=== PATIENT | male | born 1960 | race Caucasian/White ===

== ENCOUNTER → 2023-08-02 | Outpatient (CLI) | payer OTHER ==
--- NOTE | 2023-08-02 09:28 | MR ---
EXAMINATION TYPE: MR Rectal wo/w con DATE OF EXAM: 08/02/2023 8:42 AM CLINICAL INDICATION:Male, 62 years old with history of C20; PHH, Rectal cancer, evaluating for mets i n pelvis. COMPARISON: s TECHNIQUE: Triplane multisequence imaging was performed of the pelvis. IV Contrast: 14 cc Gadavist FINDINGS: Reproductive: Prostate: Unremarkable. Seminal vesicle's: Unremarkable. Testes: Unremarkable. Bladder: Unremarkable. Bowel: Primary rectal malignancy visualized with sequential wall thickening involving the anus and ex tending superiorly. There is circumferential wall thickening noted series 411 image 12 up to 11 mm. Peritoneum: A small amount of free fluid in the pelvis. Extra-mesorectal lymph nodes: (mesorectal, superior rectal, middle rectal, inferior rectal, sigmoid mesenteric, inferior mesenteric , lateral sacral, presacral, sacral promontory) Locoregional: internal iliac, obturator M1: external iliac, common iliac, inguinal, retroperitoneal Left pelvic sidewall 10 mm in short axis lymph node well as additional lymph nodes on image 27, 29, i mage 24 in the presacral space and the sacral promontory space which are smaller but morphology and l ocation are suspicious for presacral metastatic disease. Vasculature: There appears to be extramural venous invasion series 411 image 13 Musculoskeletal: Bone marrow signal is within normal signal intensity. Abdominal wall/soft tissues: Bilateral fat-containing inguinal hernias. Fat-containing umbilical [place] ia. IMPRESSION: Respiratory motion limits evaluation as well as evaluation without rectal protocol. Findings compatible with primary rectal malignancy which involves the anus with evidence of extramura l venous invasion and metastatic disease to multiple lymph nodes at least 6 lymph nodes are identifie d that are suspicious..
== END | disposition home or self-care (01) ==
LOC: RADMRIMAIN 07:07
PROVIDERS: ATTEND Colon & Rectal Surgery
DX: C20 Malignant neoplasm of rectum (principal)
CPT/HCPCS: 72197; A9585

== ENCOUNTER → 2023-09-16 | Outpatient (CLI) | payer OTHER ==
--- NOTE | 2023-09-18 09:44 | PE ---
EXAMINATION TYPE: PET CT fusion skull to thigh DATE OF EXAM: 09/16/2023 CLINICAL INDICATION:Male, 62 years old with history of C20; TECHNIQUE: Following the intravenous administration of 10.16 mCi of F-18 FDG, whole body images are performed from the skull base to the midthigh. Images are reviewed on the computer in the coronal, axial, and sagittal planes. Reconstructed rotating images are created on independent workstation and reviewed on the computer. A non-contrast CT is performed in conjunction with the PET scan. Glucose level 89 mg/dL CT DLP: 1080 mGycm, Automated exposure control for dose reduction was used. COMPARISON: CT None, PET/CT None, MR pelvis 08/02/2023. FINDINGS: Mediastinal SUV mean is 2.3. Hepatic parenchyma SUV mean is 2.6. SKULL BASE AND NECK: No suspicious radiotracer activity. CHEST, MEDIASTINUM, AND HILAR REGION: No suspicious radiotracer activity. ABDOMEN AND PELVIS: * Rectal wall uptake max SUV 21.1 this measures at least up to 8 cm in length on sagittal imaging. T here is eccentric wall thickening of the rectum measuring up to 17 mm near the anorectal verge. * There lymph nodes present which does not definitively uptake which may be partially due to their s mall size and sensitivity of PET/CT. A lymph node measuring 7 mm in short axis present posterior in t he presacral space without increased radiotracer activity max SUV 2.4. Left pelvic sidewall lymph nod e measuring 7 mm also without increased metabolic activity measuring Max SUV 1.9. * Additional left pelvic sidewall lymph node max SUV 5.2 adjacent to this others submillimeter lymph node. * A right pelvic sidewall lymph node measuring 14 mm Max SUV 6.5. MUSCULOSKELETAL STRUCTURES: Focus of uptake within the left iliac bone max SUV 6.2. OTHER CT: Atherosclerosis of the arterial vasculature. Calcified granuloma left upper lobe. The gallbladder surgically absent. Fatty atrophy changes of the pancreas. Fat-containing umbilical hernia. The prostate gland is enlarged measuring up to 5.4 cm. IMPRESSION: FDG activity near the rectoanal verge compatible with malignancy. There are few scattered pelvic lymp h nodes and at least one left iliac bone osseous lesion with mild uptake concerning for metastatic di sease.
== END | disposition home or self-care (01) ==
LOC: RADPETMAIN 10:38
PROVIDERS: ATTEND Internal Medicine
DX: C20 Malignant neoplasm of rectum (principal)
CPT/HCPCS: 78815; A9552